=== PATIENT | female | born 1955 | race Caucasian/White ===

== ENCOUNTER 2020-08-14 14:51 | Outpatient (RCR) | payer MEDICARE, SELFPAY ==
--- NOTE | 2020-08-14 16:03 | PTOPEVAL ---
Thank you for referring Makayla Duran to [facility].? The patient is scheduled to be seen for therapy? ____x/week for ___ weeks. Please review, sign, date and return this plan of care FERNANDO. I agree with and certify that the following plan of care is medically necessary. Referring Physician Date Admitting Provider: Attending Provider: GENIA ZUNIGA Referring Provider: RUDY Outpatient Evaluation Start: 08/14/20 14:52 Freq: Status: Active Protocol: Document 08/14/20 15:00 ACR (Rec: 08/14/20 15:46 ACR [id number]) Therapy Assessment Status Assessment Status Assessment Status Evaluation Evaluation Information Problem Diagnosis L knee OA Onset 06/22/20 Subjective Information Patient states she is getting Query Text:As Reported By Patient/ a L total knee replacement on Family 08/21/20 and is here to learn how to walk with her walker. Patient is taking an anti inflammatory for her knee at this time. Patient states she has steps to get into the house with bilateral handrails . Patient states that she has difficulty bending down, navigating the stairs, being on her feet for prolonged periods of time. Prior Level of Function Activity Level (Last 3 Months) Occupation lead cashier/linux server engineer Hand Dominance Right Activity of Daily Living Ability Independent Indoor/Home Mobility Independent Community Mobility Independent Stairs Ability Independent Functional Cognition (Planning, Shopping Independent , Taking Medications) Cooking Yes Cleaning Yes Laundry Yes Shopping Yes Driving Yes Pain Assessment Timing of Pain Assessment Timing of Pain Assessment Assessment Pain Scale Pain Scale Used Numeric (1 - 10) Self Report Pain Assessment Left Knee(s) Reported Pain Level 5 Pain Score Pain Score 5: Self Report Interventions Used Interventions Used By Clinicians Activity or ADL's,Education, Electrical Stimulation, Exercise,Heat Lower Extremity Range of Motion Knee Range of Motion Left Knee Flexion Range of Motion - Active 110 Knee Extension Range of Motion - Active 0 Query Text: Lower Extremity Muscle Strength Testing Knee Strength Right Knee Flexi
--- NOTE | 2020-08-27 10:10 | PTOPEVAL ---
Thank you for referring Makayla Duran to [facility].? The patient is scheduled to be seen for therapy? ____x/week for ___ weeks. Please review, sign, date and return this plan of care FERNANDO. I agree with and certify that the following plan of care is medically necessary. Referring Physician Date Admitting Provider: Attending Provider: GENIA ZUNIGA Referring Provider: BryanPT Outpatient Evaluation Start: 08/14/20 14:52 Freq: Status: Active Protocol: Document 08/27/20 09:25 ACR (Rec: 08/27/20 10:09 [facility] [id number]) Therapy Assessment Status Assessment Status Assessment Status Progress Evaluation Information Problem Diagnosis L TKA Onset 08/21/20 Subjective Information Patient states she had some Query Text:As Reported By Patient/ difficulty after surgery and Family had some soreness. She states she is able to move around, but is slower than normal. Pain Assessment Timing of Pain Assessment Timing of Pain Assessment Pre-Treatment Pain Scale Pain Scale Used Numeric (1 - 10) Self Report Pain Assessment Left Knee(s) Reported Pain Level 3 Lowest Pain Intensity 3 Greatest Pain Intensity 8 Pain Score Pain Score 3: Self Report Interventions Used Interventions Used By Clinicians Activity or ADL's,Education, Exercise Lower Extremity Range of Motion Knee Range of Motion Left Knee Flexion Range of Motion - Active 94 Knee Extension Range of Motion - Active -12 Query Text: Lower Extremity Muscle Strength Testing Knee Strength Left Knee Flexion Strength 4 Good Knee Extension Strength 3+ Fair + Palpation Assessment Palpation Palpation L knee joint line: 47 cm R knee joint line: 43.5 cm Gait Assessment Gait Assessment Additional Ambulation Comments Patient ambulates into clinic with WW, decreased terminal stance, decreased heel strike. Modalities Intermittent Compression Pump Left Lower Extremity Patient Position Supine Intensity Setting 45 Query Text:(0 - 45 mmHg) Treatment Duration 15 Query Text:(0 - 60 Minutes) Reason For Treatment Edema,Pain Management,Soft Tissue Tightness/Spasms Response to Treatment for Contributing Reduce Pain,Reduce Soft Tissue to Therapeutic Activity Tightness/Spasms PT Clinical Summary Clinical Summary Protocol: PTEVCODE PT Clinical Summary Patient is a 65 year old female that presents to therap
--- NOTE | 2020-09-21 12:00 | PTOPEVAL ---
Thank you for referring Makayla Duran to [facility].? The patient is scheduled to be seen for therapy? ____x/week for ___ weeks. Please review, sign, date and return this plan of care FERNANDO. I agree with and certify that the following plan of care is medically necessary. Referring Physician Date Admitting Provider: Attending Provider: GENIA ZUNIGA Referring Provider: *PT Outpatient Evaluation Start: 08/14/20 14:52 Freq: Status: Active Protocol: Document 09/21/20 10:00 ACR (Rec: 09/21/20 11:02 ACR [id number]) Therapy Assessment Status Assessment Status Assessment Status Discharge Pain Assessment Timing of Pain Assessment Timing of Pain Assessment Pre-Treatment Pain Scale Pain Scale Used Numeric (1 - 10) Self Report Pain Assessment Left Knee(s) Reported Pain Level 3 Greatest Pain Intensity 4 Pain Score Pain Score 3: Self Report Interventions Used Interventions Used By Clinicians Activity or ADL's,Education, Exercise Lower Extremity Muscle Strength Testing Knee Strength Right Knee Flexion Strength 4- Good - Knee Extension Strength 4+ Good + Left Knee Flexion Strength 4+ Good + Knee Extension Strength 4+ Good + Palpation Assessment Palpation Palpation L knee joint line: 46 cm R knee joint line: 45.5 cm General Exercise General Exercises Exercise Description - reevaluation x 10 minutes Query Text:Record Sets, Reps, - heel prop 10 minutes Resistance, and Position - heel slides x 5 min - nustep level 5, 10 minutes BLE - squats x 30 - slant board stretch x 1 min x 2 - step ups forward and lateral 6 in x 20 bilat - heel/toe raises x 30 - SLR x 25 Modalities Intermittent Compression Pump Left Lower Extremity Patient Position Supine Treatment Duration 15 Query Text:(0 - 60 Minutes) Reason For Treatment Edema,Pain Management,Soft Tissue Tightness/Spasms Response to Treatment for Contributing Reduce Pain,Reduce Soft Tissue to Therapeutic Activity Tightness/Spasms PT Clinical Summary Clinical Summary Protocol: PTEVCODE PT Clinical Summary Patient is a 65 year old female that presents to therapy for discharge after participating in 9 sessions for a L TKA. The patient
--- NOTE | 2020-09-21 12:54 | PTOPEVAL ---
Thank you for referring Makayla Duran to [facility].? The patient is scheduled to be seen for therapy? ____x/week for ___ weeks. Please review, sign, date and return this plan of care FERNANDO. I agree with and certify that the following plan of care is medically necessary. Referring Physician Date Admitting Provider: Attending Provider: GENIA ZUNIGA Referring Provider: BryanPT Outpatient Evaluation Start: 08/14/20 14:52 Freq: Status: Active Protocol: Document 09/21/20 10:00 ACR (Rec: 09/21/20 11:02 ACR [email or web address]) Therapy Assessment Status Assessment Status Assessment Status Discharge Evaluation Information Problem Diagnosis L TKA Onset 08/21/20 Subjective Information Patient states that she has Query Text:As Reported By Patient/ been able to walk without her Family cane in her home and community with no difficulty. She is able to go up and down the stairs to her basement. She states she has no difficulty with any of her ADL's and is able to do whatever she needs to do. She returns to work on 10/02/20 and feels that she will be able to handle a 5hr shift. Pain Assessment Timing of Pain Assessment Timing of Pain Assessment Pre-Treatment Pain Scale Pain Scale Used Numeric (1 - 10) Self Report Pain Assessment Left Knee(s) Reported Pain Level 3 Greatest Pain Intensity 4 Pain Score Pain Score 3: Self Report Interventions Used Interventions Used By Clinicians Activity or ADL's,Education, Exercise Lower Extremity Muscle Strength Testing Knee Strength Right Knee Flexion Strength 4- Good - Knee Extension Strength 4+ Good + Left Knee Flexion Strength 4+ Good + Knee Extension Strength 4+ Good + Palpation Assessment Palpation Palpation L knee joint line: 46 cm R knee joint line: 45.5 cm General Exercise General Exercises Exercise Description - reevaluation x 10 minutes Query Text:Record Sets, Reps, - heel prop 10 minutes Resistance, and Position - heel slides x 5 min - nustep level 5, 10 minutes BLE - squats x 30 - slant board stretch x 1 min x 2 - step ups forward and lateral 6 in
== END 2020-09-21 14:07 | disposition home or self-care (01) ==
LOC: CHSPT 14:51
DX: M17.12 Unilateral primary osteoarthritis, left knee (principal); S83.232D Complex tear of medial meniscus, current injury, left knee, subsequent encounter; M71.22 Synovial cyst of popliteal space [Baker], left knee; M17.0 Bilateral primary osteoarthritis of knee
CPT/HCPCS: 97014; 97016; 97110; 97112; 97161; 97530; G0283

== ENCOUNTER 2020-08-18 11:19 | Outpatient (CLI) | payer MEDICARE, SELFPAY ==
[2020-08-20 12:59] LABS: SARS-CoV-2 RNA PCR Negative
== END 2020-08-18 11:20 | disposition home or self-care (01) ==
LOC: CHSLAB 11:22
PROVIDERS: Visit Provider Family Medicine
DX: Z01.818 Encounter for other preprocedural examination (principal); Z20.822 Contact with and (suspected) exposure to COVID-19
CPT/HCPCS: C9803; U0003; U0005

== ENCOUNTER 2022-06-25 13:45 | Outpatient (RCR) | payer MEDICARE, SELFPAY ==
--- NOTE | 2022-06-25 14:43 | PTOPEVAL1 ---
Assessment and note entered by Sam Alaniz Evaluation Information Diagnosis s/p right TKA Onset 06/17/22 Subjective Information Pt. reports she underwent surgery on 06/17/22. She report she has been doing exercise at home. She reports that she lives by herself. She has not been driving. She reports that she is still having trouble sleeping at night. She states that she is currently using a ww. She reports that she is currently retired. She states that her goal is to be able to walk 1 block without an AD. Reported Pain Level Pain Score 7: Self Report Assessment PT Clinical Summary Pt. is a 67 year old female who enters the clinic 1 week post right TKA. She presents with impaired gait, impaired l.e. strength, impaired ROM, edema and pain on this date. Continued treatment is indicated in order to improve these areas to allow the pt. to be able to complete all IADL's without complication. Plan of Care Interventions Gait Training,Hot Pack/Cold Pack,Manual Therapy, Neuro Re-education,Therapeutic Activities, Therapeutic Exercise,Self-Care/Home Management Other Interventions vasopneumatic compression PT Services Indicated Yes Treatment Frequency and 2x/week x 10 visits Duration These treatments will address the objective and functional deficits as defined above. The patient will be advanced safely and appropriately in order for the patient to progress towards his/her prior level of function. Additional exercises will be introduced and as well as a comprehensive home exercise program upon discharge, if needed, ?to ensure carryover of functional gains achieved in the clinic. This treatment plan has been reviewed and agreement upon by the patient.
== END 2022-07-16 15:59 | disposition home or self-care (01) ==
LOC: CHSPT 13:45
DX: Z47.1 Aftercare following joint replacement surgery (principal); Z96.651 Presence of right artificial knee joint
CPT/HCPCS: 97014; 97016; 97110; 97161; 97530; G0283

== ENCOUNTER 2023-01-19 11:36 | Outpatient (CLI) | payer MEDICARE, SELFPAY ==
--- NOTE | ~2023-01-19 | XR_ITS ---
EXAMINATION: XR chest 2V DATE: 01/19/2023 11:55 INDICATION: 2 days of acute cough TECHNIQUE: PA and lateral views of the chest were obtained. COMPARISON: None FINDINGS: Elevation the right hemidiaphragm. No focal airspace opacities, pulmonary edema, pleural effusion or pneumothorax. The cardiomediastinal silhouette is normal. Moderate thoracic spondylosis. IMPRESSION: 1. Elevation of the right hemidiaphragm. No other acute cardiopulmonary disease. Reviewed, dictated and finalized at location A. IMPRESSION: 1. Elevation of the right hemidiaphragm. No other acute cardiopulmonary disease .
== END 2023-01-19 11:37 | disposition home or self-care (01) ==
LOC: CHSIMG 11:40
PROVIDERS: PCP Family Medicine; Visit Provider Family Medicine
DX: R05.1 Acute cough (principal); R91.8 Other nonspecific abnormal finding of lung field
CPT/HCPCS: 71046

== ENCOUNTER 2025-01-05 15:14 | Outpatient (CLI) | payer MEDICARE, SELFPAY ==
--- NOTE | ~2025-01-05 | XR_ITS ---
XR chest 2V 01/05/2025 15:29 Indication: Acute bronchiolitis Procedure: 2 view chest Comparison: 01/19/2023 Findings: Left basilar infiltrates may represent atelectasis/scarring or less likely pneumonia. Elmer celio right diaphragm. Heart size normal. No edema or pneumothorax. No significant effusion. Impression: 1: Left basilar infiltrate may represent atelectasis/scarring or less likely developing pneumonia. Reviewed, dictated and finalized at location B. Impression: 1: Left basilar infiltrate may represent atelectasis/scarring or less likely de veloping pneumonia.
== END 2025-01-05 15:15 | disposition home or self-care (01) ==
LOC: CHSIMG 15:16
PROVIDERS: PCP Family Medicine; Visit Provider Family Medicine
DX: J21.9 Acute bronchiolitis, unspecified (principal); R91.8 Other nonspecific abnormal finding of lung field
CPT/HCPCS: 71046

== ENCOUNTER 2025-01-30 11:40 | Outpatient (CLI) | payer MEDICARE, SELFPAY ==
--- NOTE | ~2025-01-30 | XR_ITS ---
EXAMINATION: XR chest 2V 01/30/2025 12:07 INDICATION: Pneumonia PROCEDURE: 2 view chest COMPARISON: Comparison to multiple prior studies sequentially, with oldest reviewed study dated 01/19/2023. FINDINGS: Left basilar atelectasis. No focal pneumonia. The cardiomediastinal silhouette is within normal limits. There are no pleural effusions. There is no pneumothorax suspected. 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 IMPRESSION: 1: NO ACUTE CARDIOPULMONARY DISEASE. Reviewed, dictated and finalized at location O.
--- OUTSIDE RECORDS SUMMARY | 2025-01-30 12:14 | XMS_ITS | Clinical Summary ---
Author Organization [facility] Address [facility] [place] [address] Care Team Providers Care Electrical And Radio Aircraft Mechanic Name Role Phone Tahir Garcia Primary Care Provider [phone] Social History Tobacco Use Types Packs/Day Years Used Date Smoking Tobacco: Never Assessed Comments Unknown Sex and Gender Information Value Date Recorded Sex Assigned at Not on file Legal Sex Female 7:08 PM CDT Gender Identity Not on file Sexual Orientation Not on file Plan of Treatment Health Maintenance Due Date Last Done Comments Colorectal Cancer Screening Colonoscopy (10 Years) 1953 Hepatitis C 1971 DTaP, Tdap and Td Vaccines ( 1 - Tdap) 1972 Mammogram Screening 1993 Pneumococcal Vaccine: 50+ Ye ars (1 of 1 - PCV) 2003 Zoster Vaccines (2 of 3) 06/05/2015 04/10/2015 Annual Medicare Wellness Visit 2018 Dexa Scan (General) 2018 COVID-19 Vaccine ( - 2023-2 5 season) 2024 RSV Immunization or 60+ Years (1 - 1-dose 75+ series) 2028 Meningococcal B Vaccine Aged Out No l onger eligible based on patient's age to complete this topic Meningococcal Vaccine Aged Out No rui bebeto eligible based on patient's age to complete this topic RSV Immunizations Under 20 Months Aged Out No longer eligible based on patient's age to complete this topic Insurance MEDICARE Care Teams Electrical And Radio Aircraft Mechanic Relationship Specialty Start Date End Date Tahir Garcia PA PCP - General PHYSICIAN SIGHT EFFECTS SPECIALIST 02/16/20
== END 2025-01-30 11:41 | disposition home or self-care (01) ==
LOC: CHSIMG 11:42
PROVIDERS: PCP Family Medicine; Visit Provider Family Medicine
DX: R93.89 Abnormal findings on diagnostic imaging of other specified body structures (principal)
CPT/HCPCS: 71046

== ENCOUNTER 2025-02-01 09:26 | Outpatient (CLI) | payer MEDICARE, SELFPAY ==
--- NOTE | ~2025-02-01 | CT_ITS ---
EXAMINATION: CT diagnostic chest wo con DATE: 02/01/2025 09:42 INDICATION: Cough for 8 weeks is suggested TECHNIQUE: Computed tomography (CT) of the chest was performed without intravenous contrast. The dose-length product was 200.38 mGy-cm. COMPARISON: Chest x-ray 01/30/2025 FINDINGS: Moderate elevation of the right. No enlarged mediastinal or hilar lymph nodes. Heart is unenlarged. There are a few coronary artery calcifications. Thoracic aorta is not aneurysmal. There is partially calcified. Tracheobronchial tree is patent. No pneumothorax. No pleural effusion. Small bandlike and reticular opacities in the right lower lung likely atelectasis and/or scarring. Multilevel mild to moderate degenerative change scattered throughout the thoracic spine. IMPRESSION: 1. Small bandlike and reticular opacities in the right lower lung likely atelectasis and/or scarring 2. Moderate elevation of the right hemidiaphragm Reviewed, dictated and finalized at location Q. IMPRESSION: 1. Small bandlike and reticular opacities in the right lower lung likely atelec tasis and/or scarring 2. Moderate elevation of the right hemidiaphragm
== END 2025-02-01 09:27 | disposition home or self-care (01) ==
PROVIDERS: PCP Family Medicine; Visit Provider Family Medicine
DX: R93.89 Abnormal findings on diagnostic imaging of other specified body structures (principal); R91.8 Other nonspecific abnormal finding of lung field
CPT/HCPCS: 71250

== ENCOUNTER 2025-03-01 08:42 | Outpatient (CLI) | payer MEDICARE, SELFPAY ==
--- OUTSIDE RECORDS SUMMARY | 2025-03-01 09:05 | XMS_ITS | Clinical Summary ---
Author Organization [facility] Address [facility] [place] [address] Care Team Providers Care Plate Grainer Name Role Phone Tahir Garcia Primary Care Provider [phone] Social History Tobacco Use Types Packs/Day Years [...] COVID-19 Vaccine ( - 2023-2 5 season) 2025 RSV Immunization or 60+ Years (1 - [...] complete this topic Insurance MEDICARE Care Teams Plate Grainer Relationship Specialty Start Date End Date Tahir Garcia PA PCP - General PHYSICIAN ELECTROCARDIOGRAPH REPAIRER 02/16/20
== END 2025-03-01 08:43 | disposition home or self-care (01) ==
PROVIDERS: PCP Family Medicine; Visit Provider Family Medicine
DX: R05.2 Subacute cough (principal)
CPT/HCPCS: 94060; 94726; 94729